=== PATIENT | female | born 1950 | race Caucasian/White ===

== ENCOUNTER 2018-02-15 16:15 | Emergency (ER) | payer MEDICARE ==
[2018-02-15] MEDS ORDERED: HYDROcodone/Acetaminophen 5/325 mg Tablet ONE (16:22)
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
== END 2018-02-15 17:17 | disposition home or self-care (01) ==
LOC: ERS 16:15
DX: S20.212A Contusion of left front wall of thorax, initial encounter (principal); E78.5 Hyperlipidemia, unspecified; I10 Essential (primary) hypertension; J44.9 Chronic obstructive pulmonary disease, unspecified; F17.210 Nicotine dependence, cigarettes, uncomplicated; F32.9 Major depressive disorder, single episode, unspecified; Z79.899 Other long term (current) drug therapy; V43.52XA Car driver injured in collision with other type car in traffic accident, initial encounter
CPT/HCPCS: 71046

== ENCOUNTER 2018-02-17 08:30 | Emergency (ER) | payer MEDICARE ==
[2018-02-17] MEDS ORDERED: HYDROcodone/Acetaminophen 10/325 mg Tablet ONE (09:17)
--- NOTE | 2018-02-17 09:30 | RAD ---
3 VIEWS RIGHT SHOULDER: Date; 02/17/18 COMPARISON: None. HISTORY: Right shoulder pain. FINDINGS: Three views of the right shoulder show no evidence of acute fracture or dislocation. There is moderat e degenerative change in the glenohumeral joint. A MediPort is partially visualized. IMPRESSION: Moderate right shoulder osteoarthritis without acute osseous abnormality. POS: [facility]
== END 2018-02-17 10:29 | disposition home or self-care (01) ==
LOC: ERS 08:30
DX: M19.011 Primary osteoarthritis, right shoulder (principal); E78.5 Hyperlipidemia, unspecified; I10 Essential (primary) hypertension; J44.9 Chronic obstructive pulmonary disease, unspecified; F17.210 Nicotine dependence, cigarettes, uncomplicated; Z79.899 Other long term (current) drug therapy

== ENCOUNTER 2018-07-21 06:36 | Inpatient (IN) | payer MEDICARE ==
[2018-07-21] MEDS ORDERED: Naloxone HCl 2 mg/2 ml Syringe ONE (06:44)
[2018-07-21] MEDS ORDERED: Ondansetron PF 4 MG/2 ML Vial ONE (06:48)
[2018-07-21] MEDS ORDERED: Piperacillin/Tazobactam 3.375 GM VIAL ONE (07:20)
[2018-07-21 07:26] LABS: Hemoglobin 10.8 g/dL (12.0-16.0); Mean Corpuscular HGB CONC 31.6 g/dL (32.0-36.0); Mean Corpuscular Hemoglobin 32.5 pg (27.0-31.0); Mean Platelet Volume 7.9 fL (7.4-10.4); Platelet Count 148 thou/uL (130-400); RBC Distribution Width 12.7 % (11.5-14.5); Red Blood Cell (RBC) Count 3.33 mill/uL (4.20-5.40); White Blood Cell (WBC) Count 20.4 thou/uL (4.8-10.8)
[2018-07-21] MEDS ORDERED: Lorazepam 2 MG/ML VIAL ONE (07:36)
--- NOTE | 2018-07-21 07:40 | RAD ---
FPortable chest radiograph: 07/21/2018 COMPARISON: 12/22/2017 HISTORY:Fever, cough, altered mental status FINDINGS: Right vascular catheter present, distal tip overlying the region of the cavoatrial junction . No pneumothorax or pleural fluid. New focal area of pulmonary parenchymal opacity in the right base laterally noted measuring 5 cm craniocaudal dimension. IMPRESSION: New focal opacity in the right lung base. Findings suggest infectious pneumonitis/aspirat ion. Recommend short-term follow-up imaging of the chest following treatment to document resolution.
[2018-07-21 07:48] LABS: ALT (SGPT) 50 U/L (8-55); AST (SGOT) 71 U/L (5-34); Albumin 2.8 g/dL (3.4-4.8); Alkaline Phosphatase 85 U/L (40-150); Anion Gap 11 mmol/L (10-20); BUN (Urea Nitrogen) 24 mg/dL (9.8-20.1); Bilirubin, Total 0.5 mg/dL (0.2-1.2); CK (CPK) 1238 U/L (29-168); Calc. Creatinine Clearance 0 mL/min (70-130); Calcium 8.7 mg/dL (7.8-10.44); Carbon Dioxide 28 mmol/L (23-31); Chloride 98 mmol/L (98-107); Estimated GFR-MDRD 63; Glucose 111 mg/dL (80-115); Lipase Less than 4 U/L (8-78); Potassium 4.5 mmol/L (3.5-5.1); Protein, Total 4.8 g/dL (6.0-8.3); Sodium 132 mmol/L (136-145)
[2018-07-21 07:59] LABS: Band 25 % (5-11); Hypochromia SLIGHT = 6-15 cells (100X) (0-5/hpf); Lymphocytes 10 % (21-51); MDiff Complete? YES; Macrocytosis SLIGHT = 6-15 cells (100X) (0-5/hpf); Monocytes 10 % (0-10); Neutrophil 55 % (42-75); Ovalocytes SLIGHT = 2-5 cells (100X) (0-1/hpf); Platelet Morphology Comment Appears Adequate; Polychromasia SLIGHT = 2-3 cells (100X) (0-2/hpf)
[2018-07-21] MEDS ORDERED: methylPREDNISolone Sod Succ/PF 125 MG/2 ML VIAL ONE (08:24)
[2018-07-21 08:41] LABS: Bilirubin Small (Negative); Blood, Urine Negative (Negative); Clarity CLOUDY (Clear); Glucose, Urine (Dipstick) Negative (Negative); Leukocyte Negative (Negative); Nitrite Negative (Negative); Protein, Urine (Dipstick) Negative (Neg-Trace); Specific Gravity, Urine 1.019 (1.002-1.036); Urobilinogen 0.2 mg/dL (0.2-1.0); pH, Urine 5.5 (5.0-9.0)
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
[2018-07-21 12:36] VITALS: BMI 23.1
[2018-07-21] MEDS: Sodium Chloride 0.9% 1,000 ML IV SCH ×2 (15:25→21:05)
[2018-07-21] MEDS: Piperacillin/Tazobactam 3.375 GM in Sodium Chloride 0.9% 100 ML IVPB SCH ×2 (15:25→20:08)
[2018-07-21] MEDS ORDERED: Nicotine 21 MG PATCH TD SCH (17:00)
[2018-07-21] MEDS ORDERED: Vancomycin HCl 1 GM in Premix Bag 1 BAG IVPB SCH (21:00)
[2018-07-21] MEDS: Acetaminophen 325 MG TAB PO PRN (21:03)
[2018-07-21] MEDS ORDERED: HYDROcodone/Acetaminophen 5/325 mg Tablet PO PRN ×2 (22:02)
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
[2018-07-22] MEDS: Piperacillin/Tazobactam 3.375 GM in Sodium Chloride 0.9% 100 ML IVPB SCH ×2 (03:04→09:34)
[2018-07-22] MEDS: Acetaminophen 325 MG TAB PO PRN ×2 (03:58→14:03)
[2018-07-22 04:56] VITALS: TEMP 97.6
[2018-07-22 04:58] LABS: #Lymphocytes 1.3 thou/uL (1.20-3.40); #Monocytes 0.9 thou/uL (0.11-0.59); #Neutrophils 13.1 thou/uL (1.40-6.50); %Basophils 0.1 % (0.0-1.0); %Eosinophils 0.1 % (0.0-10.0); %Lymphocytes 8.3 % (21.0-51.0); %Monocytes 5.7 % (0.0-10.0); %Neutrophils 85.9 % (42.0-75.0); Mean Corpuscular HGB CONC 31.4 g/dL (32.0-36.0); Mean Corpuscular Hemoglobin 32.1 pg (27.0-31.0); Mean Platelet Volume 8.2 fL (7.4-10.4); Platelet Count 170 thou/uL (130-400); RBC Distribution Width 12.9 % (11.5-14.5); Red Blood Cell (RBC) Count 3.74 mill/uL (4.20-5.40); White Blood Cell (WBC) Count 15.3 thou/uL (4.8-10.8)
[2018-07-22 05:21] LABS: Anion Gap 11 mmol/L (10-20); BUN (Urea Nitrogen) 19 mg/dL (9.8-20.1); Calc. Creatinine Clearance 107 mL/min (70-130); Calcium 8.1 mg/dL (7.8-10.44); Carbon Dioxide 26 mmol/L (23-31); Chloride 106 mmol/L (98-107); Estimated GFR-MDRD Greater than 90; Glucose 99 mg/dL (80-115); Potassium 4.2 mmol/L (3.5-5.1); Sodium 139 mmol/L (136-145)
[2018-07-22] MEDS ORDERED: Enoxaparin Sodium 40 MG/0.4 ML SYRINGE SC SCH (09:00)
[2018-07-22] MEDS ORDERED: Amoxicillin/Potassium Clav 875 MG TAB PO SCH (09:00)
[2018-07-22] MEDS: Sodium Chloride 0.9% 1,000 ML IV SCH (09:15)
[2018-07-22] MEDS ORDERED: Saccharomyces boulardii 250 MG CAP PO SCH (09:30)
[2018-07-22] MEDS: Loperamide HCl 2 MG CAP PO PRN ×2 (09:37→14:03)
--- NOTE | 2018-07-22 10:24 | PRG ---
DATE OF SERVICE: 07/22/2018 SUBJECTIVE: Claudia Alfaro is back to her baseline she says. OBJECTIVE: GENERAL: She is in no distress. VITAL SIGNS: Heart rate 101, blood pressure 148/78, respiratory rate 20, oximetry is 97% on 2 L. LUNGS: Clear. HEART: Regular rhythm. ABDOMEN: Soft. LABORATORY DATA: White count 15.3, hemoglobin 12.0, platelets 170. Electrolytes are normal. IMPRESSION: 1. drug overdose. 2. Polypharmacy. 3. Right lower lobe infiltrate. I suppose this could be a mass lesion given her lack of symptoms. It is imperative as I have explained to her that she follow up with me in 3 to 4 weeks for repeat chest x-ray. She has been switched to p.o. antimicrobial therapy. I feel that she is stable for discharge. Job ID: [id number]
--- NOTE | 2018-07-23 08:53 | DIS ---
DATE OF ADMISSION: 07/21/2018 DATE OF DISCHARGE: 07/22/2018 DISCHARGE DISPOSITION: Home. FOLLOWUP: 1. Follow up with primary care physician, Dr. Zach Brooke in 1 week. 2. Home health care through [facility] will be resumed. ALLERGIES: GABAPENTIN. DISCHARGE MEDICATIONS: 1. Augmentin 875 mg twice daily for 1 week. 2. Florastor 250 mg daily for next 20 days. All other home medications were resumed. BRIEF HOSPITAL COURSE: The patient is a 67-year-old female with anxiety and chronic pain syndrome, who presented to the hospital with altered mentation. Her initial vital signs showed temperature 101 with blood pressure of 66/44, and O2 saturation of 83% on room air. Please refer to the history and physical by Dr. Weinberg for further details. The patient was admitted to the intermediate care unit with a diagnosis of aspiration pneumonia. She received several medications in the emergency room including Solu-Medrol, vancomycin, Zosyn, Narcan, IV fluids, and Ativan. The patient was seen by Critical Care, Dr. Jameson Higuera. The antibiotics have been switched to oral. The patient is currently on room air. The patient has been cleared by Dr. Higuera for discharge. FINAL DIAGNOSES: 1. Sepsis with acute organ dysfunction secondary to aspiration pneumonia. 2. Acute hypoxic respiratory failure secondary to #1. 3. History of multiple myeloma. 4. Hypertension. 5. Chronic pain syndrome. 6. Moderate protein-calorie malnutrition. 7. Rhabdomyolysis with CK of 1238. A repeat CK after 1 week is recommended. 8. Hyponatremia. 9. Dehydration on admission. PLAN: Plan of care was discussed with the patient in detail. She stated understanding. Job ID: [id number]
[2018-07-23] MEDS ORDERED: Saccharomyces boulardii 250 MG CAP PO SCH (09:00)
== END 2018-07-22 16:46 | disposition home health service (06) | DRG 917 ==
LOC: ERS 06:36 → ERHOLD 08:20 → IMCU/EMU 11:43
PROVIDERS: ADMIT Internal Medicine; ATTEND Internal Medicine
DX: T40.2X1A Poisoning by other opioids, accidental (unintentional), initial encounter (principal); J96.01 Acute respiratory failure with hypoxia; A41.9 Sepsis, unspecified organism; C90.01 Multiple myeloma in remission; F11.20 Opioid dependence, uncomplicated; T42.8X1A Poisoning by antiparkinsonism drugs and other central muscle-tone depressants, accidental (unintentional), initial encounter; T42.4X1A Poisoning by benzodiazepines, accidental (unintentional), initial encounter; F31.9 Bipolar disorder, unspecified; J44.9 Chronic obstructive pulmonary disease, unspecified; F17.210 Nicotine dependence, cigarettes, uncomplicated; I10 Essential (primary) hypertension; Z88.8 Allergy status to other drugs, medicaments and biological substances; Z79.899 Other long term (current) drug therapy; Z96.651 Presence of right artificial knee joint; R91.8 Other nonspecific abnormal finding of lung field
CPT/HCPCS: 36415; 71045; 80048; 80053; 81003; 82550; 83605; 83690; 83880; 84484; 85025; 87040; 93005; 94640; A4353; J1650; J2060; J2310; J2405; J2543; J2930; J3370; J7050

== ENCOUNTER 2018-08-19 08:17 | Outpatient (CLI) | payer MEDICARE ==
--- NOTE | 2018-08-19 08:44 | RAD ---
PA AND LATERAL VIEWS CHEST: Date; 08/19/18 HISTORY: Dyspnea. FINDINGS: Comparison made with exams of 07/21/18 and 02/15/18. Right-sided Port-A-Cath remains in place. The heart size is normal. The lungs are well expanded witho ut focal areas of consolidation, pneumothoraces, or pleural effusions. The patchy opacity in the righ t lung noted on the exam of 07/21/18 has resolved in the interim. There are degenerative changes in t he spine. Multiple compressed thoracic vertebral bodies are seen. Old left-sided rib fractures are ag ain noted. IMPRESSION: No acute process. POS: [facility]
== END 2018-08-19 08:18 | disposition home or self-care (01) ==
LOC: RAD 08:17
PROVIDERS: ATTEND Internal Medicine Critical Care Medicine
DX: R06.00 Dyspnea, unspecified (principal)
CPT/HCPCS: 71046

== ENCOUNTER 2018-10-14 13:33 | Outpatient (CLI) | payer MEDICARE ==
--- NOTE | 2018-10-14 14:40 | RAD ---
RADIOGRAPH CHEST 2 VIEWS: DATE: 10/14/2018 HISTORY: 68-year-old female with multiple myeloma FINDINGS: There is no airspace density, pulmonary edema, pleural effusion, pneumothorax, or cardiomegaly. There is diffuse hyperinflation consistent with COPD. No interval change overall since 08/19/2018. IMPRESSION: 1. No acute cardiopulmonary findings. 2. Right-sided implantable vascular access port. 3. Emphysema. 4. Several old left lateral rib fracture deformities.
--- NOTE | 2018-10-14 14:59 | RAD ---
EXAM: XR Bone Survey Adult STANDARD PROVIDED CLINICAL HISTORY: Multiple myeloma. COMPARISON: None FINDINGS: AP and lateral views of the spine, lateral view of the skull, and AP views of the upper and lower ext remities are provided. Multilevel degenerative changes are seen involving the cervical, thoracic, and lumbar spine. S-shaped scoliotic curvature of the thoracolumbar spine is seen. There is suggestion of mild vertical height loss involving the T7, T9, and T11 vertebral body suggesting mild compression deformities of i ndeterminate age. However, these mild compressions bones were present on prior study on 08/19/2018. There is bilateral glenohumeral osteoarthropathy as well as prominent osteoarthritis involving the le ft knee joint. A right knee total prosthesis is present. A remote fracture involving the left superior and inferior pubic rami are seen as well as a remote healed fracture involving the distal ri ght fibula. No suspicious lytic or sclerotic osseous lesions are seen. A right subclavian Mediport catheter is partially imaged. IMPRESSION: 1. Scattered degenerative changes as described above with suggestion of mild age-indeterminate compre ssion fractures of T7, T9, and T11 vertebral bodies. These compression deformities were present on study of 08/19/2018. 2. Remote left pelvic and left fibular fractures. 3. No suspicious lytic or sclerotic osseous lesions are identified.
== END 2018-10-14 13:34 | disposition home or self-care (01) ==
LOC: BICRAD 13:33
PROVIDERS: ATTEND Internal Medicine Medical Oncology
DX: C90.00 Multiple myeloma not having achieved remission (principal); M47.812 Spondylosis without myelopathy or radiculopathy, cervical region; M47.814 Spondylosis without myelopathy or radiculopathy, thoracic region; M47.816 Spondylosis without myelopathy or radiculopathy, lumbar region; J43.9 Emphysema, unspecified; Z95.9 Presence of cardiac and vascular implant and graft, unspecified
CPT/HCPCS: 71046; 77075; 80053; 82248; 83615; 83883; 84100; 84165; 84550

== ENCOUNTER 2020-03-06 08:34 | Outpatient (CLI) | payer MEDICARE ==
--- NOTE | 2020-03-06 11:36 | CT ---
PELVIC CT SCAN WITH IV CONTRAST: Date: 03/06/2020 HISTORY: History of multiple myeloma. Recent fall. History of prior pelvic fracture. FINDINGS: Heterogeneous bony demineralization. Evidence for left inferior pubis deformity from prior fracture. No evidence for acute fracture. No specific circumscribed lytic bone defects that would suggest multi ple myeloma. Marked disc degenerative changes lumbar spine with multilevel stenosis of L3-L4, L4-L5, and L5-S1. IMPRESSION: 1. Discogenic lumbar disease with stenosis. 2. Heterogeneous bony demineralization. 3. No evidence for circumscribed lytic bone defects to suggest multiple myeloma. No evidence for acu te fracture. POS: [facility]
--- NOTE | 2020-03-06 11:50 | CT ---
LUMBAR SPINE CT WITHOUT CONTRAST: HISTORY: Pain. The patient fell on . History of multiple myeloma. FINDINGS: Five lumbar-type vertebrae. Lumbar spine vertebral body height is maintained. No evidence of an acu te lumbar spine fracture. There is a remote superior end plate irregularity involving T12, incomplet sumeet evaluated. There are extensive hypertrophic changes involving the facets through the lumbar spin e. There is no spondylolisthesis or spondylolysis. Vacuum disk phenomenon from T12-L1 all the way t o L5-S1. Coronal images demonstrate rightward curvature of the lumbar spine with the apex at the L2-L3 level. Visualized sacrum and bony pelvis appear to be intact. Overall, there is diffuse bone demineralization. Visualized solid organs, paraspinal muscles, and alimentary canal do not demonstrate any posttraumati c change. Limited evaluation of the contents of the central spinal canal and neural foramina due to technique. T12-L1: Vacuum disk phenomenon. Broad-based disk bulge with mild central canal stenosis. Mild to m oderate bilateral neural foraminal narrowing. L1-L2: Vacuum disk phenomenon. Broad-based disk bulge results in mild central canal stenosis. Nancy re bilateral neural foraminal narrowing. L2-L3: Vacuum disk phenomenon. Broad-based disk bulge, ligamentum flavum thickening, and facet hype rtrophy. Moderate central canal stenosis. Moderate to severe bilateral neural foraminal narrowing. L3-L4: Vacuum disk phenomenon. Severe loss of disk space height. Broad-based disk bulge, ligamentu m flavum thickening, and facet hypertrophy result in moderate to severe central canal stenosis. Mild to moderate right and moderate to severe left neural foraminal narrowing. L4-L5: Vacuum disk phenomenon with moderate loss of disk space height. Broad-based disk bulge, liga mentum flavum thickening, and facet hypertrophy result in moderate central canal stenosis. Moderate severe right and moderate left neural foraminal narrowing. L5-S1: Vacuum disk phenomenon. Broad-based disk bulge, ligamentum flavum thickening, and facet hype rtrophy result in moderate central canal stenosis. Moderate to severe bilateral neural foraminal akila rowing. IMPRESSION: 1. Diffuse bone demineralization. 2. Multilevel degenerative changes of the lumbar spine as detailed above. There is significnat cent ral canal stenosis and foraminal narrowing at multiple levels. 3. No evidence of a lumbar spine fracture. 4. Irregularity involving the superior end plate of T11, incompletely evaluated. POS: [facility]
== END 2020-03-06 08:35 | disposition home or self-care (01) ==
LOC: CT 08:34
PROVIDERS: ATTEND Internal Medicine Medical Oncology
DX: M54.5 Low back pain (principal); C90.00 Multiple myeloma not having achieved remission; M47.816 Spondylosis without myelopathy or radiculopathy, lumbar region; M48.061 Spinal stenosis, lumbar region without neurogenic claudication; M81.0 Age-related osteoporosis without current pathological fracture; R93.7 Abnormal findings on diagnostic imaging of other parts of musculoskeletal system
CPT/HCPCS: 72131; 72193

== ENCOUNTER 2020-09-07 07:54 | Outpatient (CLI) | payer MEDICARE | END 2020-09-07 07:55 | disposition home or self-care (01) | LOC: PET 07:54 | PROVIDERS: ATTEND Internal Medicine Medical Oncology | DX: C90.00 Multiple myeloma not having achieved remission (principal) | CPT/HCPCS: 78815; A9552 ==

== ENCOUNTER 2020-10-18 09:36 | Outpatient (CLI) | payer MEDICARE | END 2020-10-18 09:37 | disposition home or self-care (01) | LOC: BICMAMMO 09:36 | PROVIDERS: ATTEND Internal Medicine Medical Oncology | DX: Z13.820 Encounter for screening for osteoporosis (principal); C90.00 Multiple myeloma not having achieved remission; M81.0 Age-related osteoporosis without current pathological fracture | CPT/HCPCS: 77080 ==

== ENCOUNTER 2021-06-13 09:30 | Outpatient (CLI) | payer MEDICARE | END 2021-06-13 09:31 | disposition home or self-care (01) | LOC: PET 09:30 | PROVIDERS: ATTEND Internal Medicine Medical Oncology | DX: C90.00 Multiple myeloma not having achieved remission (principal); C79.51 Secondary malignant neoplasm of bone | CPT/HCPCS: 78815; A9552 ==

== ENCOUNTER 2021-08-08 13:07 | Outpatient (CLI) | payer MEDICARE ==
[2021-08-08 15:08] LABS: #Basophils 0.1 10x3/uL (0.0-0.2); #Neutrophils 6.4 10x3/uL (1.5-8.4); %Basophils 0.7 % (0.0-2.0); %Eosinophils 0.3 % (0.0-6.0); %Lymphocytes 18.1 % (18.0-47.0); %Monocytes 11.1 % (0.0-10.0); %Neutrophils 69.3 % (40.0-75.0); Hemoglobin 10.7 g/dL (12.0-15.5); Mean Corpuscular HGB CONC 33.5 g/dL (32.0-36.0); Mean Corpuscular Hemoglobin 34.7 pg (27.0-33.0); Mean Corpuscular Volume 103.6 fl (81.6-98.3); Mean Platelet Volume 10.8 fl (7.4-10.4); Platelet Count 144 10x3/uL (150-450); RBC Distribution Width 14.4 % (11.5-14.5); Red Blood Cell (RBC) Count 3.08 10x6/uL (3.90-5.03); White Blood Cell (WBC) Count 9.2 10x3/uL (3.5-10.5)
[2021-08-08 15:19] LABS: Anion Gap 16 mmol/L (10-20); BUN (Urea Nitrogen) 26 mg/dL (9.8-20.1); Calc. Creatinine Clearance 0 mL/min (70-130); Calcium 10.7 mg/dL (7.8-10.44); Carbon Dioxide 26 mmol/L (23-31); Chloride 102 mmol/L (98-107); Glucose 101 mg/dL (80-115); Potassium 4.4 mmol/L (3.5-5.1); Sodium 140 mmol/L (136-145)
[2021-08-09 00:19] LABS: SARS-CoV-2 PCR by NAA Not Detected (NotDetected)
== END 2021-08-08 13:08 | disposition home or self-care (01) ==
LOC: LABBT 13:07
PROVIDERS: ATTEND Surgery
DX: Z01.818 Encounter for other preprocedural examination (principal); Z20.822 Contact with and (suspected) exposure to COVID-19
CPT/HCPCS: 80048; 85025; 93005; U0003; U0005; 93010

== ENCOUNTER 2021-08-13 08:22 | Day surgery (SDC) | payer MEDICARE ==
[2021-08-08 11:15] VITALS: BMI 21.5
[2021-08-13] MEDS ORDERED: SUGAMMADEX SODIUM 200 MG/2 ML VIAL ONE (10:25)
[2021-08-13] MEDS ORDERED: Bupivacaine 0.25% 10 ML VIAL ONE (10:28)
[2021-08-13] MEDS ORDERED: Lidocaine 1% w/Epinephrine 1:100K 20 ML VIAL ONE (10:28)
[2021-08-13] MEDS ORDERED: ceFAZolin (BATCH) 2 GM/100 ML BAG ONE (10:49)
[2021-08-13] MEDS ORDERED: Ketamine 50 MG/ML (10ML VIAL) ONE (10:54)
[2021-08-13] MEDS ORDERED: Dexamethasone 20 MG/5 ML VIAL ONE (11:02)
[2021-08-13] MEDS ORDERED: Rocuronium Bromide 10 MG/ML (10ML VIAL) ONE (11:02)
[2021-08-13] MEDS ORDERED: ePHEDrine 50 MG/ML VIAL ONE (11:02)
[2021-08-13] MEDS ORDERED: Ondansetron PF 4 MG/2 ML Vial ONE (11:02)
[2021-08-13] MEDS ORDERED: Lidocaine 1% PF 5 ML VIAL ONE (11:02)
[2021-08-13] MEDS ORDERED: Glycopyrrolate 0.2 MG/ML 5 ML SYRINGE ONE (11:02)
[2021-08-13] MEDS ORDERED: PROPOFOL 200 MG/20 ML VIAL ONE (11:02)
[2021-08-13] MEDS ORDERED: PHENYLEPHRINE-NS 100 MCG/ML 10 ML SYRINGE ONE (11:02)
[2021-08-13] MEDS ORDERED: Phenylephrine 10 MG/ML VIAL ONE (11:18)
[2021-08-13] MEDS ORDERED: Fentanyl 250 MCG/5 ML VIAL ONE (12:16)
== END 2021-08-13 16:00 | disposition home or self-care (01) ==
LOC: SDC 08:22
PROVIDERS: ATTEND Surgery
PROC: 0WUF4JZ Supplement Abdominal Wall with Synthetic Substitute, Percutaneous Endoscopic Approach (ICD-10-PCS; principal; 2021-08-13)
PROC: 8E0W4CZ Robotic Assisted Procedure of Trunk Region, Percutaneous Endoscopic Approach (ICD-10-PCS; 2021-08-13)
DX: K43.2 Incisional hernia without obstruction or gangrene (principal); K66.0 Peritoneal adhesions (postprocedural) (postinfection); G89.29 Other chronic pain; F17.210 Nicotine dependence, cigarettes, uncomplicated; Z79.83 Long term (current) use of bisphosphonates; Z79.899 Other long term (current) drug therapy; Z88.8 Allergy status to other drugs, medicaments and biological substances
CPT/HCPCS: C1781; J0690; J1100; J2370; J2405; J2704; J3010; J3490; S0020

== ENCOUNTER 2021-08-18 06:29 | Observation (INO) | payer MEDICARE ==
[2021-08-18] MEDS ORDERED: Morphine 4 MG/ML VIAL ONE (06:44)
[2021-08-18] MEDS ORDERED: Ondansetron PF 4 MG/2 ML Vial ONE (06:45)
[2021-08-18 07:36] LABS: ALT (SGPT) 8 U/L (8-55); AST (SGOT) 12 U/L (5-34); Albumin 3.9 g/dL (3.4-4.8); Alkaline Phosphatase 50 U/L (40-110); Anion Gap 15 mmol/L (10-20); BUN (Urea Nitrogen) 18 mg/dL (9.8-20.1); Bilirubin, Total 0.7 mg/dL (0.2-1.2); Calc. Creatinine Clearance 0 mL/min (70-130); Calcium 11.2 mg/dL (7.8-10.44); Carbon Dioxide 27 mmol/L (23-31); Chloride 100 mmol/L (98-107); Globulin 2.5 g/dL (2.4-3.5); Glucose 119 mg/dL (80-115); Potassium 3.5 mmol/L (3.5-5.1); Protein, Total 6.4 g/dL (5.8-8.1); Sodium 138 mmol/L (136-145)
[2021-08-18 07:38] LABS: ALT (SGPT) 7 U/L (8-55); AST (SGOT) 12 U/L (5-34); Albumin 3.8 g/dL (3.4-4.8); Alkaline Phosphatase 51 U/L (40-110); Anion Gap 16 mmol/L (10-20); BUN (Urea Nitrogen) 19 mg/dL (9.8-20.1); Bilirubin, Total 0.7 mg/dL (0.2-1.2); Calc. Creatinine Clearance 0 mL/min (70-130); Calcium 11.1 mg/dL (7.8-10.44); Carbon Dioxide 27 mmol/L (23-31); Chloride 99 mmol/L (98-107); Globulin 2.5 g/dL (2.4-3.5); Glucose 123 mg/dL (80-115); Lipase 14 U/L (8-78); Potassium 3.5 mmol/L (3.5-5.1); Protein, Total 6.3 g/dL (5.8-8.1); Sodium 138 mmol/L (136-145)
[2021-08-18 08:12] LABS: Bacteria/HPF 1+ HPF (None Seen); Bilirubin Negative (Negative); Blood, Urine Negative (Negative); Clarity Clear (Clear); Glucose, Urine (Dipstick) Normal (Negative); Ketone, Urine 10 mg/dL (Negative); Leukocyte 75 Leu/uL (Negative); Nitrite Negative (Negative); Protein, Urine (Dipstick) 20 mg/dL (Neg-Trace); RBC/HPF 0-3 HPF (0-3); Urobilinogen Normal mg/dL (Less than 2); pH, Urine 6.5 (5.0-9.0)
[2021-08-18 08:18] LABS: Hemoglobin 12.4 g/dL (12.0-16.0); Mean Corpuscular HGB CONC 32.7 g/dL (32.0-36.0); Mean Corpuscular Hemoglobin 35.7 pg (27.0-31.0); RBC Distribution Width 13.3 % (11.5-14.5); Red Blood Cell (RBC) Count 3.47 mill/uL (4.20-5.40)
[2021-08-18 08:32] LABS: #Lymphocytes 1.4 thou/uL (1.20-3.40); #Neutrophils 9.9 thou/uL (1.40-6.50); %Basophils 0.4 % (0.0-1.0); %Eosinophils 0.3 % (0.0-10.0); %Lymphocytes 11.5 % (21.0-51.0); %Monocytes 7.8 % (0.0-10.0); MDiff Complete? YES; Macrocytosis MODERATE=16-30 cells (100X) (0-5/hpf); Platelet Count 110 thou/uL (130-400); Platelet Morphology Comment Appears Decreased; White Blood Cell (WBC) Count 12.3 thou/uL (4.8-10.8)
[2021-08-18] MEDS ORDERED: Iopamidol-370 76% 500 ML 1 ML ONE (09:10)
[2021-08-18 11:16] LABS: SARS-CoV-2 NAA Rapid Test Not Detected (NotDetected)
[2021-08-18] MEDS ORDERED: fentaNYL Citrate/PF 100 MCG/2 ML SYRINGE ONE (11:32)
[2021-08-18] MEDS ORDERED: Rocuronium Bromide 10 MG/ML (10ML VIAL) ONE (11:43)
[2021-08-18] MEDS ORDERED: PHENYLEPHRINE-NS 100 MCG/ML 10 ML SYRINGE ONE (11:43)
[2021-08-18] MEDS ORDERED: PROPOFOL 200 MG/20 ML VIAL ONE (11:43)
[2021-08-18] MEDS ORDERED: Lidocaine 1% PF 5 ML VIAL ONE (11:43)
[2021-08-18] MEDS ORDERED: Lidocaine 1% w/Epinephrine 1:100K 20 ML VIAL ONE (11:52)
[2021-08-18] MEDS ORDERED: Bupivacaine 0.25% 10 ML VIAL ONE (11:52)
[2021-08-18] MEDS ORDERED: SUGAMMADEX SODIUM 200 MG/2 ML VIAL ONE (12:00)
[2021-08-18] MEDS ORDERED: cefOXitin 2 GM VIAL ONE (12:00)
[2021-08-18] MEDS ORDERED: traMADol HCl 50 MG TAB PO PRN ×2 (12:23→15:06)
[2021-08-18] MEDS ORDERED: Lorazepam 2 MG/ML VIAL SLOW IVP PRN (12:23)
[2021-08-18] MEDS ORDERED: hydrALAZINE 20 MG/ML VIAL SLOW IVP PRN (12:23)
[2021-08-18] MEDS ORDERED: Fentanyl 100 MCG/2 ML VIAL ONE (12:50)
[2021-08-18] MEDS ORDERED: Acetaminophen 500 MG TAB PO PRN (15:04)
[2021-08-18] MEDS ORDERED: HumaLOG 300 UNITS/3 ML VIAL SC PRN (15:08)
[2021-08-18] MEDS ORDERED: Dextrose 5% in Water 1,000 ML IV PRN (15:08)
[2021-08-18] MEDS ORDERED: Dextrose 50% Abboject 50 ML SYRINGE SLOW IVP PRN (15:08)
[2021-08-18] MEDS: D5 1/2 NS w/20 mEq KCL 1,000 ML IV SCH (15:24)
[2021-08-18 16:15] VITALS: BMI 20.9
[2021-08-18] MEDS: Morphine 4 MG/ML VIAL SLOW IVP PRN ×2 (18:13→23:05)
[2021-08-18] MEDS: Enoxaparin Sodium 40 MG/0.4 ML SYRINGE SC SCH (21:12)
[2021-08-18] MEDS: traZODone HCl 50 MG TAB PO SCH (21:13)
[2021-08-18] MEDS: DULoxetine 60 MG CAP PO SCH (21:13)
[2021-08-18] MEDS: Famotidine/PF 20 mg/2ml Vial SLOW IVP SCH (21:14)
[2021-08-19] MEDS: D5 1/2 NS w/20 mEq KCL 1,000 ML IV SCH ×4 (00:23→20:48)
[2021-08-19] MEDS: Morphine 4 MG/ML VIAL SLOW IVP PRN ×4 (02:59→18:02)
[2021-08-19 06:06] LABS: #Eosinphils 0.2 thou/uL (0.0-0.7); #Lymphocytes 0.7 thou/uL (1.20-3.40); #Monocytes 0.5 thou/uL (0.11-0.59); #Neutrophils 4.4 thou/uL (1.40-6.50); %Basophils 0.8 % (0.0-1.0); %Eosinophils 3.5 % (0.0-10.0); %Lymphocytes 12.2 % (21.0-51.0); %Monocytes 8.6 % (0.0-10.0); %Neutrophils 74.9 % (42.0-75.0); Hemoglobin 9.9 g/dL (12.0-16.0); Mean Corpuscular HGB CONC 33.9 g/dL (32.0-36.0); Mean Platelet Volume 8.8 fL (7.4-10.4); Platelet Count 81 thou/uL (130-400); Red Blood Cell (RBC) Count 2.67 mill/uL (4.20-5.40); White Blood Cell (WBC) Count 5.8 thou/uL (4.8-10.8)
[2021-08-19 06:33] LABS: ALT (SGPT) 36 U/L (8-55); AST (SGOT) 62 U/L (5-34); Alkaline Phosphatase 169 U/L (40-110); Anion Gap 9 mmol/L (10-20); BUN (Urea Nitrogen) 16 mg/dL (9.8-20.1); Bilirubin, Total 0.4 mg/dL (0.2-1.2); Calc. Creatinine Clearance 81 mL/min (70-130); Carbon Dioxide 28 mmol/L (23-31); Chloride 104 mmol/L (98-107); Globulin 1.9 g/dL (2.4-3.5); Glucose 115 mg/dL (80-115); Potassium 3.7 mmol/L (3.5-5.1); Protein, Total 4.9 g/dL (5.8-8.1); Sodium 137 mmol/L (136-145)
[2021-08-19] MEDS ORDERED: Citrucel 500 MG TAB PO SCH (09:00)
[2021-08-19] MEDS ORDERED: Citalopram 20 MG TAB PO SCH (09:00)
[2021-08-19] MEDS ORDERED: Multivitamin W/ Minerals 1 TAB PO SCH (09:00)
[2021-08-19] MEDS ORDERED: Lisinopril 10 MG TAB PO SCH (09:00)
[2021-08-19] MEDS ORDERED: Oxybutynin ER 5 MG TAB PO SCH (09:00)
[2021-08-19] MEDS: Famotidine/PF 20 mg/2ml Vial SLOW IVP SCH ×2 (09:05→20:49)
[2021-08-19] MEDS: Polyethylene Glycol 3350 17 GM Packet PO SCH (09:06)
[2021-08-19] MEDS: HYDROcodone/Acetaminophen 7.5/325 mg Tablet PO PRN ×2 (13:57→20:49)
[2021-08-19] MEDS: DULoxetine 60 MG CAP PO SCH (20:49)
[2021-08-19] MEDS: Enoxaparin Sodium 40 MG/0.4 ML SYRINGE SC SCH (20:49)
[2021-08-19] MEDS: traZODone HCl 50 MG TAB PO SCH (20:49)
[2021-08-20] MEDS: HYDROcodone/Acetaminophen 7.5/325 mg Tablet PO PRN ×2 (02:50→10:03)
[2021-08-20] MEDS: Morphine 4 MG/ML VIAL SLOW IVP PRN ×2 (05:16)
[2021-08-20 07:40] VITALS: BP 128/74; TEMP 97.5
[2021-08-20] MEDS: Polyethylene Glycol 3350 17 GM Packet PO SCH (08:37)
[2021-08-20] MEDS: Famotidine/PF 20 mg/2ml Vial SLOW IVP SCH (08:37)
== END 2021-08-20 11:41 | disposition home or self-care (01) ==
LOC: ERS 06:29 → SDC/OP 11:42 → SURG A 13:00
PROVIDERS: ADMIT Surgery; ATTEND Specialist
PROC: 0WQF0ZZ Repair Abdominal Wall, Open Approach (ICD-10-PCS; principal; 2021-08-18)
DX: K43.0 Incisional hernia with obstruction, without gangrene (principal); K56.699 Other intestinal obstruction unspecified as to partial versus complete obstruction; R18.8 Other ascites; F17.210 Nicotine dependence, cigarettes, uncomplicated; I10 Essential (primary) hypertension; E78.5 Hyperlipidemia, unspecified; J44.9 Chronic obstructive pulmonary disease, unspecified; J98.11 Atelectasis; Z85.79 Personal history of other malignant neoplasms of lymphoid, hematopoietic and related tissues; Z85.810 Personal history of malignant neoplasm of tongue; Z79.899 Other long term (current) drug therapy; Z88.8 Allergy status to other drugs, medicaments and biological substances; Z20.822 Contact with and (suspected) exposure to COVID-19
CPT/HCPCS: 49561; 71045; 74018; 74177; 80053 ×3; 83605; 83690; 83880; 84484; 85025 ×2; 93005; 96374; 96375; 97139 ×2; 99285; U0002; 36415; 81003; 81015; 96372; 96376; G0378; J0694; J1650; J2270; J2405; J2704; J3010; J3480; Q9967; S0020; S0028

== ENCOUNTER 2022-04-08 12:54 | Emergency (ER) | payer MEDICARE ==
[2022-04-08 13:40] LABS: #Eosinphils 0.1 thou/uL (0.0-0.7); #Lymphocytes 1.4 thou/uL (1.20-3.40); #Monocytes 0.4 thou/uL (0.11-0.59); #Neutrophils 1.9 thou/uL (1.40-6.50); %Basophils 0.4 % (0.0-1.0); %Eosinophils 2.4 % (0.0-10.0); %Lymphocytes 36.3 % (21.0-51.0); %Monocytes 11.1 % (0.0-10.0); %Neutrophils 49.8 % (42.0-75.0); Hemoglobin 7.3 g/dL (12.0-16.0); Mean Corpuscular HGB CONC 33.2 g/dL (32.0-36.0); Mean Corpuscular Hemoglobin 37.4 pg (27.0-31.0); Mean Platelet Volume 6.8 fL (7.4-10.4); Platelet Count 42 10x3/uL (130-400); RBC Distribution Width 15.7 % (11.5-14.5); Red Blood Cell (RBC) Count 1.96 mill/uL (4.20-5.40); White Blood Cell (WBC) Count 3.9 10x3/uL (4.8-10.8)
[2022-04-08 13:50] LABS: ALT (SGPT) 9 U/L (8-55); AST (SGOT) 14 U/L (5-34); Albumin 3.1 g/dL (3.4-4.8); Alkaline Phosphatase 55 U/L (40-110); Anion Gap 9 mmol/L (10-20); BUN (Urea Nitrogen) 20 mg/dL (9.8-20.1); Bilirubin, Total 0.3 mg/dL (0.2-1.2); Calc. Creatinine Clearance 0 mL/min (70-130); Calcium 9.2 mg/dL (7.8-10.44); Carbon Dioxide 33 mmol/L (23-31); Chloride 100 mmol/L (98-107); Estimated GFR 87; Globulin 2.3 g/dL (2.4-3.5); Glucose 99 mg/dL (80-115); Potassium 4.3 mmol/L (3.5-5.1); Protein, Total 5.4 g/dL (5.8-8.1); Sodium 138 mmol/L (136-145)
[2022-04-08 14:25] LABS: Band 10 % (5-11); Lymphocytes 34 % (21-51); MDiff Complete? YES; Macrocytosis MODERATE=16-30 cells (100X) (0-5/hpf); Monocytes 10 % (0-10); Neutrophil 43 % (42-75); Platelet Morphology Comment Appears Decreased; Polychromasia SLIGHT = 2-3 cells (100X) (0-2/hpf); Reactive Lymphocytes 3 % (0-10)
[2022-04-08] MEDS ORDERED: Ketorolac Tromethamine 30 MG/ML VIAL ONE (14:36)
[2022-04-08 14:42] LABS: Hypochromia SLIGHT = 6-15 cells (100X) (0-5/hpf); Schistocytes SLIGHT = 2-5 cells (100X) (0-1/hpf)
== END 2022-04-08 15:51 | disposition home or self-care (01) ==
LOC: ERS 12:54
DX: S70.01XA Contusion of right hip, initial encounter (principal); S40.012A Contusion of left shoulder, initial encounter; S50.11XA Contusion of right forearm, initial encounter; D64.9 Anemia, unspecified; E78.5 Hyperlipidemia, unspecified; I10 Essential (primary) hypertension; J44.9 Chronic obstructive pulmonary disease, unspecified; F17.210 Nicotine dependence, cigarettes, uncomplicated; W18.09XA Striking against other object with subsequent fall, initial encounter
CPT/HCPCS: 36415; 70450; 80053; 85025; 93005; 96374; J1885